=== PATIENT | female | born 1980 | race Caucasian/White ===

== ENCOUNTER 2022-07-03 17:18 | Emergency (ER) | payer SELFPAY ==
[2022-07-03 17:40] VITALS: BP 122/68; PULSE 89; RESP 18; TEMP 98; BMI 29.1
[2022-07-03 18:28] LABS: HCG,QUALITATIVE URINE Negative
[2022-07-03] MEDS ORDERED: SODIUM CHLORIDE 0.9% 1000 ML INFUS.BAG IV ONE (18:49)
[2022-07-03] MEDS ORDERED: ACETAMINOPHEN 1000 MG/100 ML BAG IVPB ONE (18:49)
[2022-07-03] MEDS ORDERED: LIDOCAINE 5% TOPICAL PATCH TP ONE (18:49)
[2022-07-03] MEDS ORDERED: LIDOCAINE 5% TOPICAL PATCH ONE (18:51)
[2022-07-03] MEDS ORDERED: ACETAMINOPHEN INJECTION 100 ML IVPB ONE (18:51)
[2022-07-03 19:55] LABS: EPITHELIAL CELLS FEW /hpf
[2022-07-03 20:41] LABS: HEMATOCRIT 41.4 % (32.4-45.2); HEMOGLOBIN 14.4 G/dL (10.7-15.3); MCH 31.1 pg (25.7-33.7); MCHC 34.7 g/dl (32.0-36.0); MEAN CELL VOLUME 89.7 fl (80-96); MEAN PLT VOLUME 8.5 fl (7.5-11.1); RBC 4.61 10^6/uL (3.60-5.2); RDW 13.4 % (11.6-15.6); WHITE BLOOD COUNT 9.2 10^3/uL (4.0-10.8)
[2022-07-03 20:53] LABS: BILIRUBIN,TOTAL 0.4 mg/dl (0.2-1); CALCIUM 9.2 mg/dl (8.5-10); CREATININE 0.7 mg/dl (0.55-1.3); MAGNESIUM 2.1 mg/dL (1.8-2.4); TOT PROT 6.9 g/dl (6.4-8.2)
[2022-07-03 21:09] LABS: PLATELET ESTIMATE ADEQUATE
[2022-07-03] MEDS ORDERED: LIDOCAINE PATCH REMOVAL MC SCH (22:00)
== END 2022-07-03 21:51 | disposition home or self-care (01) ==
LOC: FER 17:18
PROC: 3E0333Z Introduction of Anti-inflammatory into Peripheral Vein, Percutaneous Approach (ICD-10-PCS; principal; 2022-07-03)
DX: M51.36 Other intervertebral disc degeneration, lumbar region (principal); R10.2 Pelvic and perineal pain
CPT/HCPCS: 36415; 72131-TC; 74176-TC; 76830-TC; 80053; 81003; 81015; 83735; 84703; 85027; 87086; 99285-25

== ENCOUNTER 2022-08-12 09:49 | Emergency (ER) | payer OTHER ==
[2022-08-12] MEDS ORDERED: KETOROLAC TROMETHAMINE 30 MG/1 ML VIAL IM ONE (10:03)
[2022-08-12] MEDS ORDERED: DEXAMETHASONE 4 MG TABLET (FP) PO ONE (10:04)
[2022-08-12] MEDS ORDERED: ACETAMINOPHEN 500 MG TABLET (FP) PO ONE (10:05)
[2022-08-12] MEDS ORDERED: KETOROLAC TROMETHAMINE 30 MG/1 ML VIAL ONE (10:11)
[2022-08-12] MEDS ORDERED: DEXAMETHASONE 4 MG TABLET (FP) ONE (10:11)
[2022-08-12] MEDS ORDERED: ACETAMINOPHEN 500 MG TABLET (FP) ONE (10:11)
[2022-08-12 10:14] VITALS: BP 122/79; PULSE 95; RESP 18; TEMP 98; BMI 29.0
== END 2022-08-12 11:00 | disposition home or self-care (01) ==
LOC: FER 09:49
PROC: 3E0233Z Introduction of Anti-inflammatory into Muscle, Percutaneous Approach (ICD-10-PCS; principal; 2022-08-12)
DX: J02.0 Streptococcal pharyngitis (principal); R05.1 Acute cough
CPT/HCPCS: 0241U-QW; 36415; 86308; 87651; 99284-25

== ENCOUNTER 2023-03-28 14:27 | Emergency (ER) | payer SELFPAY ==
[2023-03-28] MEDS ORDERED: SODIUM CHLORIDE 0.9% 500 ML INFUS.BAG IV ONE (14:47)
[2023-03-28] MEDS ORDERED: ACETAMINOPHEN 1000 MG/100 ML BAG IVPB ONE (14:47)
[2023-03-28] MEDS ORDERED: METOCLOPRAMIDE HCL INJECTION 10 MG/2 ML VIAL IVPB ONE (14:53)
[2023-03-28] MEDS ORDERED: METOCLOPRAMIDE HCL INJECTION 10 MG/2 ML VIAL ONE (15:28)
[2023-03-28] MEDS ORDERED: ACETAMINOPHEN INJECTION 100 ML IVPB ONE (15:28)
[2023-03-28 16:15] LABS: HEMATOCRIT 42.6 % (32.4-45.2); HEMOGLOBIN 14.2 G/dL (10.7-15.3); MCH 29.7 pg (25.7-33.7); MCHC 33.2 g/dl (32.0-36.0); MEAN CELL VOLUME 89.5 fl (80-96); MEAN PLT VOLUME 8.1 fl (7.5-11.1); PLATELET COUNT 273.4 10^3/uL (134-434); RBC 4.76 10^6/uL (3.60-5.2); RDW 14.3 % (11.6-15.6); WHITE BLOOD COUNT 10.1 10^3/uL (4.0-10.8)
[2023-03-28 16:34] LABS: ALBUMIN 4.2 g/dl (3.4-5.0); BILIRUBIN,TOTAL 0.4 mg/dl (0.2-1); BLOOD UREA NITROGEN 9.7 mg/dl (7-18); CALCIUM 9.2 mg/dl (8.5-10.1); CREATININE 0.7 mg/dl (0.6-1.3); POTASSIUM 4.3 mmol/L (3.5-5.1); SGOT/AST 19.1 U/L (15-37); SGPT/ALT 22.5 U/L (7-52); TOT PROT 6.9 g/dl (6.4-8.2)
[2023-03-28 17:15] LABS: HCG,QUALITATIVE URINE Positive
[2023-03-28 17:30] LABS: EPITHELIAL CELLS FEW /hpf
[2023-03-28 17:30] LABS: PLATELET ESTIMATE ADEQUATE
== END 2023-03-28 18:44 | disposition home or self-care (01) ==
LOC: FER 14:27
PROC: 3E033NZ Introduction of Analgesics, Hypnotics, Sedatives into Peripheral Vein, Percutaneous Approach (ICD-10-PCS; principal; 2023-03-28)
PROC: 3E033GC Introduction of Other Therapeutic Substance into Peripheral Vein, Percutaneous Approach (ICD-10-PCS; 2023-03-28)
DX: O20.0 Threatened abortion (principal); O26.891 Other specified pregnancy related conditions, first trimester; R51.9 Headache, unspecified; R10.30 Lower abdominal pain, unspecified; Z3A.00 Weeks of gestation of pregnancy not specified
CPT/HCPCS: 36415; 76817-TC; 80053; 81003; 81015; 84702; 84703; 85025; 86850; 86900; 86901; 87086; 99284-25